=== PATIENT | male | born 1945 | race Caucasian/White ===

== ENCOUNTER 2020-04-15 13:31 | Inpatient (IN) ==
[2020-04-15 14:20] LABS: Hematocrit 43.3 % (37.5-50.1); Mean Corpuscular HGB Conc 32.3 g/dL (31.6-35.5); Mean Corpuscular Hemoglobin 30.3 pg (28.0-33.3); Mean Corpuscular Volume 93.7 fL (83.0-100.0); Mean Platelet Volume 9.4 fL (9.4-12.4); Platelet Count 293 K/mcL (140-400); Red Blood Count 4.62 M/mcL (4.19-5.50); Red Cell Distribution Width 13.8 % (11.5-14.5); White Blood Count 5.4 K/mcL (4.3-11.1)
[2020-04-15 14:34] LABS: BUN/Creatinine Ratio 14 (6-26); Blood Urea Nitrogen 20 mg/dL (8-23); Calcium 8.7 mg/dL (8.6-10.3); Carbon Dioxide 19 mEq/L (23-29); Chloride 102 mEq/L (98-107); Glucose 131 mg/dL (70-105); Osmolality,Calculated 286 (280-300); Potassium 3.4 mEq/L (3.5-5.1); Sodium 136 mEq/L (136-145); Troponin I 0.07 ng/mL (< 0.04); eGFR For African Americans > 60 (> 60); eGFR For Non-African Americans 50 (> 60)
[2020-04-15 14:52] LABS: Eosinophils # 0.1 K/mcL (0.0-0.6); Lymphocytes # 0.8 K/mcL (0.6-4.6); Monocytes # 0.4 K/mcL (0.0-1.3); Neutrophils # 4.1 K/mcL (1.6-8.9); Platelet Estimate Normal (Normal); Reactive Lymphocytes Present (Not Present)
[2020-04-15] MEDS ORDERED: Naloxone 0.4 MG/ML INJ IVP PRN (16:04)
[2020-04-15] MEDS ORDERED: Ondansetron 4 MG/2 ML VIAL IVP PRN (16:04)
[2020-04-15] MEDS: Dexamethasone 4 MG/ML VIAL IVP SCH (16:28)
[2020-04-15] MEDS ORDERED: 0.9 % Sodium Chloride 1,000 ML IVC SCH (17:00)
[2020-04-15] MEDS ORDERED: cefTRIAXone 1,000 MG in 0.9 % Sodium Chloride Mini Bag 100 ML IVPB SCH (17:00)
[2020-04-15] MEDS ORDERED: cefTRIAXone 1,000 MG in Water for inj. (sterile) 10 ML IVPB SCH (17:45)
[2020-04-15] MEDS: Azithromycin 500 MG in 0.9 % Sodium Chloride 250 ML IVPB SCH (18:43)
[2020-04-15] MEDS: cefTRIAXone 1,000 MG in Water for inj. (sterile) 10 ML IVP SCH (18:43)
[2020-04-15] MEDS: Ipratropium 1 PUFF INHALER IH SCH (20:41)
[2020-04-16] MEDS: Ipratropium 1 PUFF INHALER IH SCH ×7 (00:11→23:29)
[2020-04-16 02:56] LABS: Hematocrit 41.6 % (37.5-50.1); Hemoglobin 12.7 g/dL (12.9-16.9); Mean Corpuscular HGB Conc 30.5 g/dL (31.6-35.5); Mean Corpuscular Hemoglobin 29.3 pg (28.0-33.3); Mean Corpuscular Volume 96.1 fL (83.0-100.0); Mean Platelet Volume 9.6 fL (9.4-12.4); Platelet Count 296 K/mcL (140-400); Red Blood Count 4.33 M/mcL (4.19-5.50); Red Cell Distribution Width 13.8 % (11.5-14.5); White Blood Count 4.9 K/mcL (4.3-11.1)
[2020-04-16 03:08] LABS: Alanine Aminotransferase 33 Units/L (7-52); Albumin/Globulin Ratio 0.9 (1.1-2.2); Alkaline Phosphatase 31 Units/L (34-104); Aspartate Amino Transferase 61 Units/L (13-39); BUN/Creatinine Ratio 17 (6-26); Bilirubin,Total 0.4 mg/dL (0.3-1.0); Blood Urea Nitrogen 23 mg/dL (8-23); C-Reactive Protein 113 mg/L (Less than 10); Calcium 8.3 mg/dL (8.6-10.3); Carbon Dioxide 20 mEq/L (23-29); Chloride 106 mEq/L (98-107); Globulin 3.5 g/dL (2.4-3.5); Glucose 170 mg/dL (70-105); Lactate Dehydrogenase 402 Units/L (140-271); Osmolality,Calculated 292 (280-300); Sodium 137 mEq/L (136-145); Total Protein 6.5 g/dL (6.4-8.9); eGFR For African Americans > 60 (> 60); eGFR For Non-African Americans 52 (> 60)
[2020-04-16 03:22] LABS: Ferritin 733 ng/mL (20-250)
[2020-04-16 04:04] LABS: Lymphocytes # 0.8 K/mcL (0.6-4.6); Monocytes # 0.3 K/mcL (0.0-1.3); Neutrophils # 3.8 K/mcL (1.6-8.9); Platelet Estimate Normal (Normal); Reactive Lymphocytes Present (Not Present)
[2020-04-16] MEDS ORDERED: *HR* Enoxaparin 40 MG/0.4 ML SYRINGE SQ SCH (06:00)
[2020-04-16] MEDS: Dexamethasone 4 MG/ML VIAL IVP SCH (08:11)
[2020-04-16] MEDS ORDERED: Furosemide 40 MG/4 ML VIAL IVP ONE (12:33)
[2020-04-16] MEDS ORDERED: *HR* Heparin 5,000 UNIT/ML VIAL IVP PRN ×2 (12:46)
[2020-04-16] MEDS ORDERED: *HR* Heparin 5,000 UNIT/ML VIAL IVP ONE (12:46)
[2020-04-16 13:42] LABS: INR 1.5; Prothrombin Time 16.6 Seconds (9.4-12.1)
[2020-04-16 13:43] LABS: Heparin anti-factor XA UFH 0.22 IU/mL (0.30-0.70)
[2020-04-16] MEDS: Heparin 25,000UNIT/250ML 1/2NS 25,000 UNIT/250 ML IV.SOLN IVC SCH (14:03)
[2020-04-16] MEDS: Pantoprazole 40 MG VIAL IVP SCH (14:04)
[2020-04-16] MEDS: atenoloL 50 MG TABLET PO SCH (14:04)
[2020-04-16 14:07] LABS: Acinetobacter baumannii by PCR Not Detected (Not Detect); Candida albicans by PCR Not Detected (Not Detect); Candida glabrata by PCR Not Detected (Not Detect); Candida krusei by PCR Not Detected (Not Detect); Candida parapsilosis by PCR Not Detected (Not Detect); Candida tropicalis by PCR Not Detected (Not Detect); Enterobacter cloacae Cmplx PCR Not Detected (Not Detect); Enterobacteriaceae by PCR Not Detected (Not Detect); Enterococcus by PCR Not Detected (Not Detect); Escherichia coli by PCR Not Detected (Not Detect); Klebsiella oxytoca by PCR Not Detected (Not Detect); Klebsiella pneumoniae by PCR Not Detected (Not Detect); Proteus by PCR Not Detected (Not Detect); Pseudomonas aeruginosa by PCR Not Detected (Not Detect); Serratia marcescens by PCR Not Detected (Not Detect); Staphylococcus aureus by PCR Not Detected (Not Detect); Staphylococcus by PCR DETECTED (Not Detect); Streptococcus agalactiae(B)PCR Not Detected (Not Detect); Streptococcus by PCR Not Detected (Not Detect); Streptococcus pneumoniae PCR Not Detected (Not Detect); Streptococcus pyogenes (A) PCR Not Detected (Not Detect); mecA Methicillin-Resist Gene Not Detected (Not Detect)
[2020-04-16] MEDS: cefTRIAXone 1,000 MG in Water for inj. (sterile) 10 ML IVP SCH (18:12)
[2020-04-16] MEDS: Azithromycin 500 MG in 0.9 % Sodium Chloride 250 ML IVPB SCH (18:13)
[2020-04-16] MEDS: Acetaminophen 325 MG TABLET PO PRN (23:12)
[2020-04-17] MEDS: Ipratropium 1 PUFF INHALER IH SCH ×6 (03:44→23:34)
[2020-04-17 04:56] LABS: Hemoglobin 12.7 g/dL (12.9-16.9); Lymphocytes # 0.8 K/mcL (0.6-4.6); Mean Corpuscular Hemoglobin 29.4 pg (28.0-33.3); Mean Corpuscular Volume 94.9 fL (83.0-100.0); Mean Platelet Volume 9.5 fL (9.4-12.4); Platelet Count 374 K/mcL (140-400); Red Blood Count 4.32 M/mcL (4.19-5.50); Red Cell Distribution Width 13.5 % (11.5-14.5)
[2020-04-17 04:59] LABS: White Blood Count 9.8 K/mcL (4.3-11.1)
[2020-04-17 05:00] LABS: Fibrinogen 500 mg/dL (169-393)
[2020-04-17 05:03] LABS: D-Dimer 1725 ng/mLFEU (0-500)
[2020-04-17 05:13] LABS: Calcium 8.9 mg/dL (8.6-10.3); Potassium 4.5 mEq/L (3.5-5.1)
[2020-04-17 05:18] LABS: Monocytes # 0.8 K/mcL (0.0-1.3); Neutrophils # 8.2 K/mcL (1.6-8.9); Platelet Estimate Normal (Normal); Reactive Lymphocytes Present (Not Present)
[2020-04-17] MEDS: Dexamethasone 4 MG/ML VIAL IVP SCH (08:48)
[2020-04-17] MEDS: Pantoprazole 40 MG VIAL IVP SCH (08:48)
[2020-04-17] MEDS: Divalproex (24 HR) 500 MG TABLET PO SCH (08:48)
[2020-04-17] MEDS: atenoloL 50 MG TABLET PO SCH (08:48)
[2020-04-17] MEDS: Spironolactone 25 MG TABLET PO SCH (08:48)
[2020-04-17] MEDS: Acetaminophen 325 MG TABLET PO PRN (12:34)
[2020-04-17] MEDS: Azithromycin 500 MG in 0.9 % Sodium Chloride 250 ML IVPB SCH (18:07)
[2020-04-17] MEDS: cefTRIAXone 1,000 MG in Water for inj. (sterile) 10 ML IVP SCH (18:07)
[2020-04-17] MEDS: Heparin 25,000UNIT/250ML 1/2NS 25,000 UNIT/250 ML IV.SOLN IVC SCH (22:59)
[2020-04-18 03:01] LABS: Fibrinogen 512 mg/dL (169-393)
[2020-04-18 03:03] LABS: D-Dimer 1346 ng/mLFEU (0-500)
[2020-04-18 03:04] LABS: Hematocrit 42.3 % (37.5-50.1); Hemoglobin 12.8 g/dL (12.9-16.9); Lymphocytes # 0.6 K/mcL (0.6-4.6); Mean Corpuscular HGB Conc 30.3 g/dL (31.6-35.5); Mean Corpuscular Volume 95.7 fL (83.0-100.0); Mean Platelet Volume 9.7 fL (9.4-12.4); Platelet Count 425 K/mcL (140-400); Red Blood Count 4.42 M/mcL (4.19-5.50); Red Cell Distribution Width 13.6 % (11.5-14.5); White Blood Count 7.7 K/mcL (4.3-11.1)
[2020-04-18 03:19] LABS: BUN/Creatinine Ratio 25 (6-26); Blood Urea Nitrogen 32 mg/dL (8-23); Calcium 8.9 mg/dL (8.6-10.3); Carbon Dioxide 28 mEq/L (23-29); Chloride 104 mEq/L (98-107); Glucose 117 mg/dL (70-105); Osmolality,Calculated 296 (280-300); Potassium 4.2 mEq/L (3.5-5.1); Sodium 139 mEq/L (136-145); eGFR For African Americans > 60 (> 60); eGFR For Non-African Americans 54 (> 60)
[2020-04-18] MEDS: Ipratropium 1 PUFF INHALER IH SCH ×5 (04:10→20:13)
[2020-04-18 04:16] LABS: Monocytes # 0.9 K/mcL (0.0-1.3); Neutrophils # 6.2 K/mcL (1.6-8.9)
[2020-04-18] MEDS: Acetaminophen 325 MG TABLET PO PRN (09:05)
[2020-04-18] MEDS: Spironolactone 25 MG TABLET PO SCH (09:06)
[2020-04-18] MEDS: atenoloL 50 MG TABLET PO SCH (09:06)
[2020-04-18] MEDS: Divalproex (24 HR) 500 MG TABLET PO SCH (09:06)
[2020-04-18] MEDS: Pantoprazole 40 MG VIAL IVP SCH (09:06)
[2020-04-18] MEDS: Dexamethasone 4 MG/ML VIAL IVP SCH (09:07)
[2020-04-18] MEDS: Furosemide 40 MG/4 ML VIAL IVP SCH (14:55)
[2020-04-18] MEDS: Heparin 25,000UNIT/250ML 1/2NS 25,000 UNIT/250 ML IV.SOLN IVC SCH (15:08)
[2020-04-18] MEDS: cefTRIAXone 1,000 MG in Water for inj. (sterile) 10 ML IVP SCH (16:31)
[2020-04-18] MEDS: Azithromycin 500 MG in 0.9 % Sodium Chloride 250 ML IVPB SCH (16:33)
[2020-04-19] MEDS: Ipratropium 1 PUFF INHALER IH SCH ×5 (00:43→16:15)
[2020-04-19 05:46] LABS: Basophils % 0.5 %; Hematocrit 38.7 % (37.5-50.1); Hemoglobin 12.4 g/dL (12.9-16.9); Immature Granulocytes % 1.6 % (0-4); Lymphocytes # 0.7 K/mcL (0.6-4.6); Lymphocytes % 11.3 %; Mean Corpuscular Hemoglobin 30.1 pg (28.0-33.3); Mean Corpuscular Volume 93.9 fL (83.0-100.0); Mean Platelet Volume 9.4 fL (9.4-12.4); Monocytes # 0.5 K/mcL (0.0-1.3); Monocytes % 7.5 %; Platelet Count 386 K/mcL (140-400); Red Blood Count 4.12 M/mcL (4.19-5.50); Red Cell Distribution Width 13.3 % (11.5-14.5); Segmented Neutrophils % 79.1 %; White Blood Count 6.3 K/mcL (4.3-11.1)
[2020-04-19 06:12] LABS: BUN/Creatinine Ratio 27 (6-26); Blood Urea Nitrogen 30 mg/dL (8-23); Calcium 8.4 mg/dL (8.6-10.3); Carbon Dioxide 25 mEq/L (23-29); Chloride 104 mEq/L (98-107); Glucose 133 mg/dL (70-105); Osmolality,Calculated 296 (280-300); Potassium 3.7 mEq/L (3.5-5.1); Sodium 139 mEq/L (136-145); eGFR For African Americans > 60 (> 60); eGFR For Non-African Americans > 60 (> 60)
[2020-04-19 06:16] LABS: Thyroid Stimulating Hormone 0.543 mcIU/mL (0.340-5.600)
[2020-04-19] MEDS ORDERED: *HR* Enoxaparin 40 MG/0.4 ML SYRINGE SQ SCH (07:00)
[2020-04-19] MEDS: atenoloL 50 MG TABLET PO SCH (10:03)
[2020-04-19] MEDS: Dexamethasone 4 MG/ML VIAL IVP SCH (10:03)
[2020-04-19] MEDS: Divalproex (24 HR) 500 MG TABLET PO SCH (10:03)
[2020-04-19] MEDS: Spironolactone 25 MG TABLET PO SCH (10:03)
[2020-04-19] MEDS: Furosemide 40 MG/4 ML VIAL IVP SCH (10:03)
[2020-04-19 16:41] VITALS: BP 125/80
[2020-04-19] MEDS: cefTRIAXone 1,000 MG in Water for inj. (sterile) 10 ML IVP SCH (16:42)
[2020-04-19] MEDS: Azithromycin 500 MG in 0.9 % Sodium Chloride 250 ML IVPB SCH (16:43)
== END 2020-04-19 18:25 | DRG 871 ==
LOC: EMEROOARM 13:31 → 3BNU 13:31 → SUATTDRO 16:03 → 3BNU 16:57
PROVIDERS: ADMIT Student in an Organized Health Care Education/Training Program; ATTEND Pharmacist